=== PATIENT | male | born 1970 | race Caucasian/White ===

== ENCOUNTER 2017-11-12 12:23 | Emergency (ER) | payer OTHER ==
[~2017-11-12] VITALS: Ht 179.1 cm; Wt 98.0 kg
[~2017-11-12 12:23] MED LIST: CHLO.12%30 SSP; CLIN150 PO; CLIN1CAP5 PO; IBUP800T23 PO; ULTR50TA PO
[2017-11-12 12:32] VITALS: BP 168/96; PULSE 70; RESP 18; TEMP 97.8; O2SAT 97
[2017-11-12] MEDS ORDERED: SODIUM CHLORIDE 0.9% FLUSH 10 ML FLUSH IV FLUSH PRN (12:45)
[2017-11-12] MEDS ORDERED: NAPR250T4 PO (12:47)
--- NOTE | 2017-11-12 12:55 | PD ---
HPI Chief Complaint: GI Complaint Time Seen by Provider: 12:36 Travel History International Travel<30 days: No Contact w/Intl Traveler<30days: No Traveled to known affect area: No History of Present Illness HPI 47 y/o male presents with constipation for 4 days with abdominal pain and distention over the past 2 days. He states that he currently does not have a primary care physician because he has not set one up yet. He states he tried his 's stool softener that she was prescribed when she was in the hospital and has not had a bowel movement for 4 days. He denies trying any other medication. Quality pain is sharp. Severity is moderate. He denies specific modifying factors. He denies having a GI specialist. PFSH Past Medical History Narrative Medical Crohn's, chronic back pain Past Surgical History Other Surgery: Yes Social History Alcohol Use: No Tobacco Use: No Allergies-Medications (Allergen,Severity, Reaction): Coded Allergies: clindamycin (Unverified Allergy, Severe, 11/12/17) penicillin G (Unverified Allergy, Unknown, 11/12/17) Reported Meds & Prescriptions Reported Meds & Active Scripts Active Reported Naproxen 250 Mg Tab 250 Mg PO TID Review of Systems Except as stated in HPI: all other systems reviewed are Neg Physical Exam Narrative GENERAL: Well-nourished, well-developed patient. SKIN: Warm and dry. HEAD: Normocephalic and atraumatic. EYES: No injection or drainage. ENT: No nasal drainage noted. NECK: Supple, trachea midline. CARDIOVASCULAR: Regular rate and rhythm RESPIRATORY: No increased effort. No accessory muscle use. GASTROINTESTINAL: Abdomen soft, moderate distention, mild tenderness left lower quadrant EXTREMITIES: No edema. NEUROLOGICAL: Awake and alert. Motor and sensory grossly within normal limits. Normal speech. Data Data Last Documented VS Vital Signs Date Time Temp Pulse Resp B/P (MAP) Pulse Ox O2 Delivery O2 Flow Rate FiO2 11/12/17 15:03 11/12/17 14:42 63 18 96 Room Air 11/12/17 12:32 97.8 Orders Orders Complete Blood Count With Diff (11/12/17 12:42) Comprehensive Metabolic Panel (11/12/17 12:42) Lipase (11/12/17 12:42) Ct Abd/Pel W Iv Contrast(Rout) (11/12/17 12:42) Iv Access Insert/Monitor (11/12/17 12:42) Ecg Monitoring (11/12/17 12:42) Oximetry (11/12/17 12:42) Sodium Chloride 0.9% Flush (Ns Flush) (11/12/17 12:45) Iohexol 350 Inj (Omnipaque 350 Inj) (11/12/17 13:42) Ed Discharge Order (11/12/17 14:26) Labs Laboratory Tests Test 11/12/17 12:52 White Blood Count 7.7 TH/MM3 Red Blood Count 5.59 MIL/MM3 Hemoglobin 16.8 GM/DL Hematocrit 48.4 % Mean Corpuscular Volume 86.6 FL Mean Corpuscular Hemoglobin 30.1 PG Mean Corpuscular Hemoglobin Concent 34.7 % Red Cell Distribution Width 11.3 % Platelet Count 268 TH/MM3 Mean Platelet Volume 8.0 FL Neutrophils (%) (Auto) 55.2 % Lymphocytes (%) (Auto) 31.5 % Monocytes (%) (Auto) 7.7 % Eosinophils (%) (Auto) 4.8 % Basophils (%) (Auto) 0.8 % Neutrophils # (Auto) 4.2 TH/MM3 Lymphocytes # (Auto) 2.4 TH/MM3 Monocytes # (Auto) 0.6 TH/MM3 Eosinophils # (Auto) 0.4 TH/MM3 Basophils # (Auto) 0.1 TH/MM3 CBC Comment DIFF FINAL Differential Comment Blood Urea Nitrogen 14 MG/DL Creatinine 0.89 MG/DL Random Glucose 83 MG/DL Total Protein 7.6 GM/DL Albumin 3.7 GM/DL Calcium Level 8.7 MG/DL Alkaline Phosphatase 72 U/L Aspartate Amino Transf (AST/SGOT) 39 U/L Alanine Aminotransferase (ALT/SGPT) 84 U/L Total Bilirubin 0.5 MG/DL Sodium Level 137 MEQ/L Potassium Level 4.2 MEQ/L Chloride Level 106 MEQ/L Carbon Dioxide Level 25.0 MEQ/L Anion Gap 6 MEQ/L Estimat Glomerular Filtration Rate 91 ML/MIN Lipase 170 U/L MDM Medical Decision Making Medical Screen Exam Complete: Yes Emergency Medical Condition: Yes Medical Record Reviewed: Yes (pmh confirmed) Interpretation(s) CBC & BMP Diagram 11/12/17 12:52 Total Protein 7.6, Albumin 3.7, Calcium Level 8.7, Alkaline Phosphatase 72, Aspartate Amino Transf (AST/SGOT) 39 H, Alanine Aminotransferase (ALT/SGPT) 84 H , Total Bilirubin 0.5 Last 24 hours Impressions Abdomen/Pelvis CT 11/12/17 1242 Signed Impressions: Service Date/Time: Sunday, November 12, 2017 13:25 - CONCLUSION: Normal examination except for bilateral adrenal adenoma. Jarrell Tang MD Differential Diagnosis constipation, diverticulitis, obstruction, ileus Narrative Course will check labs and ct and reevaluate Labs, CT without emergent process, given [id number] constipation medication recommendations, Patient denies any new complaints and states that they are feeling better. Patient happy with care, all questions answered. Patient knows that follow up is incumbent on them and to return to the emergency room immediately if new or worsening symptoms develop. Patient given strict return precautions, vitals reviewed and are normal, agrees to further workup as an outpatient. Diagnosis Primary Impression: Abdominal pain Qualified Codes: R10.32 - Left lower quadrant pain Additional Impression: Constipation Qualified Codes: K59.00 - Constipation, unspecified Patient Instructions: General Instructions Additional Instructions: return as needed, start with over the counter miralax for constipation, set up a primary for close follow up Med/Other Pt SpecificInfo: No Change to Meds Disposition: 01 DISCHARGE HOME Condition: Stable Melisa Fong MD Nov 12, 2017 12:55
[2017-11-12 12:58] VITALS: O2SAT 97
[2017-11-12 12:58] LABS: AUTOMATED NEUTROPHIL # 4.2 TH/MM3 (1.8-7.7); BASOPHIL # 0.1 TH/MM3 (0-0.2); BASOPHIL % 0.8 % (0.0-2.0); EOSINOPHIL # 0.4 TH/MM3 (0-0.4); EOSINOPHIL % 4.8 % (0.0-4.0); HEMATOCRIT 48.4 % (39.0-51.0); HEMOGLOBIN 16.8 GM/DL (13.0-17.0); LYMPH % 31.5 % (9.0-44.0); LYMPHOCYTE # 2.4 TH/MM3 (1.0-4.8); MEAN CELL VOLUME 86.6 FL (80.0-100.0); MEAN CORPUSCULAR HEMOGLOBIN 30.1 PG (27.0-34.0); MEAN CORPUSCULAR HGB CONC 34.7 % (32.0-36.0); MONO % 7.7 % (0.0-8.0); MONOCYTE # 0.6 TH/MM3 (0-0.9); NEUT % 55.2 % (16.0-70.0); PLATELET COUNT 268 TH/MM3 (150-450); RED BLOOD COUNT 5.59 MIL/MM3 (4.50-5.90); RED CELL DISTRIBUTION WIDTH 11.3 % (11.6-17.2); WHITE BLOOD COUNT 7.7 TH/MM3 (4.0-11.0)
[2017-11-12 13:09] LABS: CHLORIDE 106 MEQ/L (98-107); SODIUM (NA) 137 MEQ/L (136-145)
[2017-11-12 13:12] LABS: ALBUMIN 3.7 GM/DL (3.4-5.0); CALCIUM 8.7 MG/DL (8.5-10.1); LIPASE 170 U/L (73-393)
[2017-11-12 13:13] LABS: BLOOD UREA NITROGEN 14 MG/DL (7-18); GLUCOSE,RANDOM 83 MG/DL (74-106)
[2017-11-12 13:15] LABS: ALT (GPT) 84 U/L (12-78); AST (GOT) 39 U/L (15-37)
[2017-11-12 13:16] LABS: CREATININE 0.89 MG/DL (0.60-1.30); GLOMERULAR FILTRATION RATE 91 ML/MIN (>89)
[2017-11-12 13:17] LABS: TOTAL BILIRUBIN ADULT 0.5 MG/DL (0.2-1.0); TOTAL PROTEIN 7.6 GM/DL (6.4-8.2)
[2017-11-12 13:18] LABS: ALKALINE PHOSPHATASE 72 U/L (45-117)
[2017-11-12] MEDS ORDERED: IOHEXOL 350 MG/ML 10 ML VIAL (for RAD DIAG) IVCONTRAST ONE (13:42)
--- NOTE | 2017-11-12 14:11 | RADRPT ---
EXAM DATE/TIME: 11/12/2017 13:25 [facility] COMPARISON: No previous studies available for comparison. INDICATIONS : Diffuse abdominal pain. IV CONTRAST: 100 cc Omnipaque 350 (iohexol) IV ORAL CONTRAST: No oral contrast ingested. RADIATION DOSE: 20.09 CTDIvol (mGy) MEDICAL HISTORY : Crohn's disease. SURGICAL HISTORY : None. ENCOUNTER: Initial ACUITY: 1 day PAIN SCALE: 3/10 LOCATION: pelvis abdomen TECHNIQUE: Volumetric scanning of the abdomen and pelvis was performed. Using automated exposure control and ad justment of the mA and/or kV according to patient size, radiation dose was kept as low as reasonably achievable to obtain optimal diagnostic quality images. DICOM format image data is available electro nically for review and comparison. FINDINGS: LOWER LUNGS: The visualized lower lungs are clear. LIVER: Homogeneous density without lesion. There is no dilation of the biliary tree. No calcified gallston es. SPLEEN: Normal size without lesion. PANCREAS: Within normal limits. KIDNEYS: Normal in size and shape. There is no mass, stone or hydronephrosis. ADRENAL GLANDS: Small nodule in each adrenal gland likely adrenal adenoma. VASCULAR: There is no aortic aneurysm. BOWEL/MESENTERY: The stomach, small bowel, and colon demonstrate no acute abnormality. There is no free intraperitone al air or fluid. ABDOMINAL WALL: Within normal limits. RETROPERITONEUM: There is no lymphadenopathy. BLADDER: No wall thickening or mass. REPRODUCTIVE: Within normal limits. INGUINAL: There is no lymphadenopathy or hernia. MUSCULOSKELETAL: Within normal limits for patient age. CONCLUSION: Normal examination except for bilateral adrenal adenoma. Jarrell Tang MD on November 12, 2017 at 14:08 Board Certified Radiologist. This report was verified electronically.
[2017-11-12 14:42] VITALS: BP 142/90; PULSE 63; RESP 18; O2SAT 96
== END 2017-11-12 15:05 | disposition home or self-care (01) ==
LOC: PHED 12:23
DX: R10.32 Left lower quadrant pain (principal); K59.00 Constipation, unspecified; G89.29 Other chronic pain; K50.90 Crohn's disease, unspecified, without complications; M54.9 Dorsalgia, unspecified
CPT/HCPCS: 74177; 80053; 83690; 85025; 99285; Q9967